=== PATIENT | female | born 1960 | race Caucasian/White ===

== ENCOUNTER → 2016-11-18 | Outpatient (CLI) | payer BC ==
[~2016-11-18] MED LIST: ADAL20KI SQ; ALBUAER2 INH; ALLDSR60 PO; CHOL100010 PO; CORACAP6 PO; FLV1 PO; GLUT500C PO; HYDR1CAP85 PO; LORA10CA2 PO; MULT-506 PO; RSP1 PO; [UNRECOGNIZED DRUG - OTHER] PO
[2016-11-18 16:11] LABS: AST/SGOT 30 U/L (15-37); BLOOD UREA NITROGEN 10 mg/dl (7-18); BUN/CREATININE RATIO 11.5 (10-20); CALCIUM 9.1 mg/dl (8.5-10.1); CARBON DIOXIDE 28 mmol/L (21-32); CHLORIDE 107 mmol/L (98-107); CREATININE 0.84 mg/dl (0.60-1.20); GLUCOSE 98 mg/dl (70-99); POTASSIUM 3.8 mmol/L (3.5-5.1); SODIUM 144 mmol/L (136-145)
[2016-11-18 16:33] LABS: ALKALINE PHOSPHATASE 85 U/L (45-117); ALT/SGPT 52 U/L (12-78); CHOLESTEROL 248 mg/dl (0-200); CHOLESTEROL/HDL RATIO 3.8; HDL CHOLESTEROL 66 mg/dl; LDL CHOLESTEROL CALCULATED 168 mg/dl; TRIGLYCERIDES 70 mg/dl (0-150); VERY LOW DENSITY LIPOPROT CALC 14 mg/dl
== END | disposition home or self-care (01) ==
LOC: C.LABBC 10:08
PROVIDERS: ATTEND Internal Medicine Geriatric Medicine
DX: E78.5 Hyperlipidemia, unspecified (principal)

== ENCOUNTER → 2017-03-01 | Outpatient (CLI) | payer BC | LOC: C.LAB1850 12:16 | PROVIDERS: ATTEND Obstetrics & Gynecology | DX: N95.1 Menopausal and female climacteric states (principal) ==

== ENCOUNTER → 2017-03-05 | Outpatient (CLI) | payer BC ==
[2017-03-05 17:01] LABS: THYROID STIMULATING HORMONE 2.41 uIu/ml (0.300-4.500)
== END | disposition home or self-care (01) ==
LOC: C.LABBC 14:16
PROVIDERS: ATTEND Physician Assistant Medical
DX: R53.83 Other fatigue (principal)

== ENCOUNTER → 2017-03-24 | Outpatient (CLI) | payer BC ==
[2017-03-24 13:24] LABS: BASO % 0.2 %; BASO ABS # 0.02 K/uL (0-0.2); COMPLETE YES; EOS % 1.5 %; HEMATOCRIT 39.8 % (37-47); IG% 0.4 %; LYMPH % 24.6 %; LYMPH ABS # 2.07 K/uL (1.2-3.4); MEAN CELL VOLUME 88.2 fL (80-100); MEAN CORPUSCULAR HEMOGLOBIN 29.5 pg (25-34); MEAN CORPUSCULAR HGB CONC 33.4 g/dl (32-36); MEAN PLATELET VOLUME 10.6 fL (7.4-10.4); MONO % 9.1 %; NEUT % 64.2 %; PLATELET COUNT 232 K/uL (130-400); RED BLOOD COUNT 4.51 M/uL (4.2-5.4); WHITE BLOOD COUNT 8.43 K/uL (4.8-10.8)
== END | disposition home or self-care (01) ==
LOC: C.LAB 12:49
PROVIDERS: ATTEND Internal Medicine
DX: M45.7 Ankylosing spondylitis of lumbosacral region (principal); Z79.899 Other long term (current) drug therapy; H20.9 Unspecified iridocyclitis

== ENCOUNTER → 2017-10-04 | Outpatient (CLI) | payer BC ==
[~2017-10-04] MED LIST changes: +GADAVIST IV PRN
--- NOTE | 2017-10-05 14:32 | MAMMOGRAPHY REPORT ---
BREAST MRI OF BOTH BREASTS : 10/04/2017 CLINICAL HISTORY: Circumscribed mass seen within the left upper outer quadrant during recent diagnost ic workup, without a clear sonographic correlate evident. History of bilateral reduction mammoplasty . COMPARISON: Comparison is made to exams dated: 09/17/2017 mammogram, 09/09/2017 mammogram, 09/08/2016 mammogram, 09/04/2015 mammogram, 07/06/2014 mammogram, and 05/02/2013 mammogram - [facility]. Technique: The patient was placed prone in a dedicated breast imaging coil. Precontrast axial T1-lyndsey ghted, axial T2-weighted fat saturation, and axial T1-weighted fat saturation images were obtained. After the administration of 7.8 cc mL of Gadavist IV contrast, sequential T1-weighted fat saturation images were obtained. Subtraction images were obtained of the dynamic contrast enhanced sequences, a nd 3-D reformations were performed. The [employer] software was used for kinetic analysis. Findings: There is moderate background parenchymal enhancement involving bilateral breasts. In the left upper outer quadrant at approximately 2:00 posteriorly, there is an oval enhancing circumscribed 8 mm mass, which demonstrates corresponding T2 hyperintensity and a benign type persistent kinetic pattern (ser ies [id number] image 55). This corresponds with the mammographic mass and is probably benign and has MRI features of a fibroadenoma. Other similar-appearing circumscribed enhancing masses are seen bilatera lly, which are T2 hyperintense and demonstrate benign type persistent kinetic patterns. There is a l obulated circumscribed enhancing 9 mm mass in the left breast at 2:30 middle depth, which contains no nenhancing internal septations (series [id number] image 57). One of the masses in the left 2 to 2:[address] likely corresponds with the hypoechoic circumscribed mass seen on ultrasound. There is a circumsc ribed enhancing 5 mm mass in the left lower inner quadrant middle depth which also has nonenhancing i nternal septations (series [id number] image 88). There is an enhancing circumscribed 7 mm mass with nonen hancing internal septations in the right lower outer quadrant middle depth (series [id number] image 92). These masses are probably benign and likely represent fibroadenomas. No suspicious masses or areas o f abnormal non-mass enhancement are noted bilaterally. A few scattered T2 hyperintense, nonenhancing masses are seen bilaterally, consistent with cysts. There is no evidence of axillary adenopathy. The chest wall structures are negative. There are trac e dependent pleural effusions bilaterally. The remainder of the visualized extramammary soft tissues are grossly unremarkable. 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 One of the enhancing masses, an 8 mm mass in the left 2:00 posterior breast, corresponds with the mammographic mass and has MRI features of a fibroadenoma. Recommend fo llow-up bilateral breast MRI in 6 months to confirm stability, given that the masses are newly visual ized on imaging. The patient was verbally notified of the results over the telephone by Dr. White on 10/04/2017. Aspen White M.D. /:10/04/2017 16:17:22 Warehouser: nursing administrator, [facility] letter sent: Follow Up Recommended 3 BI-RADS Code: ACR-BI-RADS Category 3: Probably Benign
== END | disposition home or self-care (01) ==
LOC: C.MRI 09:37
PROVIDERS: ATTEND Obstetrics & Gynecology
DX: R92.8 Other abnormal and inconclusive findings on diagnostic imaging of breast (principal); N63.10 Unspecified lump in the right breast, unspecified quadrant; N63.20 Unspecified lump in the left breast, unspecified quadrant

== ENCOUNTER → 2017-11-18 | Outpatient (CLI) | payer OTHER ==
[~2017-11-18] MED LIST changes: -GADAVIST IV PRN
== END | disposition home or self-care (01) ==
LOC: C.LAB1850 11:01
PROVIDERS: ATTEND Dermatology
DX: L65.9 Nonscarring hair loss, unspecified (principal)

== ENCOUNTER → 2018-03-02 | Outpatient (CLI) | payer OTHER ==
[~2018-03-02] MED LIST changes: +GADAVIST IV PRN
--- NOTE | 2018-03-03 14:56 | MAMMOGRAPHY REPORT ---
BREAST MRI OF BOTH BREASTS : 03/02/2018 CLINICAL HISTORY: Short interval follow-up of bilateral breast masses. COMPARISON: Comparison is made to exams dated: 10/04/2017 breast MRI, 09/17/2017 ultrasound, 7 mammogram, 09/09/2017 mammogram, 09/08/2016 mammogram, and 09/04/2015 mammogram - [facility]. Technique: The patient was placed prone in a dedicated breast imaging coil. Precontrast axial T1-lyndsey ghted, axial T2-weighted fat saturation, and axial T1-weighted fat saturation images were obtained. After the administration of 7 mL of Gadavist IV contrast, sequential T1-weighted fat saturation image s were obtained. Subtraction images were obtained of the dynamic contrast enhanced sequences, and 3- D reformations were performed. The [employer] software was used for kinetic analysis. Findings: There is mild to moderate background parenchymal enhancement involving bilateral breasts. Again note d are multiple circumscribed enhancing masses bilaterally, which demonstrate predominantly persistent kinetics. The masses are stable in size and appearance compared to the September 2017 exam. The dom inant masses include an enhancing circumscribed 7 mm mass in the right lower outer quadrant, enhancin g circumscribed 9 mm mass in the left upper outer quadrant middle depth, enhancing circumscribed 8 mm mass in the left upper outer quadrant posteriorly, and enhancing circumscribed 5 mm mass in the left lower inner quadrant. Many of the masses demonstrate nonenhancing internal septations. The masses are probably benign and likely represent fibroadenomas. The remainder of both breasts are stable com pared to the prior breast MRI, with no suspicious enhancing masses or areas of abnormal non-mass enha ncement. There is no evidence of axillary adenopathy. The chest wall structures are negative. Visualized ext ramammary soft tissues are grossly unremarkable. IMPRESSION: ACR-BI-RADS CATEGORY 3: PROBABLY BENIGN Multiple similar-appearing circumscribed enhancing masses bilaterally are stable compared to the [place] 2016 breast MRI and are probably benign and likely represent fibroadenomas. Recommend follow-up bilateral breast MRI in 6 months to confirm 1 year stability. Additionally, the patient will be due for annual mammography August 2018; consider having the patient be a diagnostic patient in case ult rasound needs to be performed. Aspen White M.D. /:03/02/2018 16:22:40 Washing Machine Installer: transportation analyst, [facility] letter sent: Follow Up Recommended 3 BI-RADS Code: ACR-BI-RADS Category 3: Probably Benign
== END | disposition home or self-care (01) ==
LOC: C.MRI 13:29
PROVIDERS: ATTEND Obstetrics & Gynecology
DX: R92.8 Other abnormal and inconclusive findings on diagnostic imaging of breast (principal); N63.20 Unspecified lump in the left breast, unspecified quadrant; N63.10 Unspecified lump in the right breast, unspecified quadrant

== ENCOUNTER → 2018-06-30 | Outpatient (CLI) | payer OTHER ==
[~2018-06-30] MED LIST changes: -GADAVIST IV PRN
[2018-06-30 15:13] LABS: ALBUMIN 3.9 gm/dl (3.4-5.0); ALKALINE PHOSPHATASE 68 U/L (45-117); ALT/SGPT 49 U/L (12-78); AST/SGOT 32 U/L (15-37); TOTAL PROTEIN 8.1 gm/dl (6.4-8.2)
== END | disposition home or self-care (01) ==
LOC: C.LAB1850 12:52
PROVIDERS: ATTEND Nurse Practitioner Adult Health
DX: R94.5 Abnormal results of liver function studies (principal)